=== PATIENT | female | born 1990 | race Two or more races ===

== ENCOUNTER 2019-05-30 14:45 | Emergency (ER) | payer BC ==
[2019-05-30 15:06] VITALS: BP 132/82
--- NOTE | 2019-05-30 15:34 | ER Document Report ---
ED Medical Screen (RME) - General Chief Complaint: Flank Pain Stated Complaint: FLANK PAIN Time Seen by Provider: 05/30/19 15:29 Mode of Arrival: Ambulatory Information source: Patient Notes: Patient presents emergency department with complaints of right-sided flank pain since yesterday. Denies pain with void. Denies fever vomiting diarrhea. Reports history of kidney stones. Denies trauma. Increases more when she takes a deep breath. I have greeted and performed a rapid initial assessment of this patient. A comprehensive ED assessment and evaluation of the patient, analysis of test results and completion of the medical decision making process will be conducted by additional ED providers. Dictation of this chart was performed using voice recognition software; therefore, there may be some unintended grammatical errors. TRAVEL OUTSIDE OF THE [place] IN LAST 30 DAYS: No - Related Data Allergies/Adverse Reactions: latex Allergy (Intermediate, Verified 05/30/19 15:29) Hives Past Medical History Renal/ Medical History: Denies: Hx Peritoneal Dialysis Physical Exam - Vital signs Vitals: Temp Pulse Resp BP Pulse Ox 98.6 F 71 18 132/82 H 98 05/30/19 15:05 05/30/19 15:05 05/30/19 15:05 05/30/19 15:05 05/30/19 15:05 Course - Vital Signs Vital signs: Temp Pulse Resp BP Pulse Ox 98.6 F 71 18 132/82 H 98 05/30/19 15:05 05/30/19 15:05 05/30/19 15:05 05/30/19 15:05 05/30/19 15:05 - Laboratory Laboratory results interpreted by me: 05/30/19 15:45 Urine Blood SMALL H Ur Leukocyte Esterase MODERATE H
[2019-05-30 16:04] LABS: APPEARANCE,URINE SLIGHTLY-CLOUDY; BILIRUBIN,URINE NEGATIVE (NEGATIVE); COLOR,URINE YELLOW; GLUCOSE, URINE NEGATIVE (NEGATIVE); KETONES,URINE NEGATIVE (NEGATIVE); LEUKOCYTE ESTERASE,URINE MODERATE (NEGATIVE); NITRITE,URINE NEGATIVE (NEGATIVE); PROTEIN,URINE NEGATIVE (NEGATIVE); URINE SPECIFIC GRAVITY 1.026; UROBILINOGEN,URINE NEGATIVE mg/dL (<2.0)
[2019-05-30] MEDS ORDERED: KETOROLAC TROMETHAMINE 60 MG/2 ML SDV IM ONE (16:15)
[2019-05-30] MEDS ORDERED: LIDOCAINE 5% (700 MG) TRANSDERMAL ADH..PATCH TP ONE (16:15)
[2019-05-30] MEDS ORDERED: DIAZEPAM 5 MG TABLET PO ONE (16:15)
--- NOTE | 2019-05-30 16:21 | ER Document Report ---
Addendum entered and electronically signed by MANDY GARCIA PA-C 05/30/19 16:45: Discharge - Discharge Clinical Impression: Elevated blood pressure reading Low back pain Qualifiers: Chronicity: acute Back pain laterality: right Sciatica presence: without sciatica Qualified Code(s): M54.5 - Low back pain UTI (urinary tract infection) Qualifiers: Urinary tract infection type: site unspecified Hematuria presence: without hematuria Qualified Code(s): N39.0 - Urinary tract infection, site not specified Condition: Good Disposition: HOME, SELF-CARE Instructions: Ciprofloxacin ([facility]), Low Back Pain ([facility]), Stretching Exercises for the Back ([facility]), Urinary Tract Infection ([facility]) Prescriptions: Ciprofloxacin HCl [Cipro 500 mg Tablet] 500 mg PO BID #10 tablet Naproxen 500 mg PO BID 7 Days #14 tablet Tizanidine HCl [Zanaflex 4 Mg Tablet] 4 mg PO TID #12 tablet Forms: Elevated Blood Pressure Referrals: [facility] [Provider Group] - Follow up as needed Original Note: ED General - General Chief Complaint: Flank Pain Stated Complaint: FLANK PAIN Time Seen by Provider: 05/30/19 15:29 Mode of Arrival: Ambulatory TRAVEL OUTSIDE OF THE [place] IN LAST 30 DAYS: No - HPI Patient complains to provider of: RIGHT SIDED LOW BACK PAIN Onset: This afternoon Onset/Duration: Sudden Quality of pain: Sharp Severity: Severe Pain Level: 4 Associated symptoms: None Exacerbated by: Movement, Walking, Deep breathing Relieved by: Denies Similar symptoms previously: No Recently seen / treated by doctor: No Notes: 28-year-old female comes in today with right low back pain. Started hurting around last night early this morning. No obvious trauma. The pain is in the right lower back it does not radiate. There is no nausea or vomiting. No dysuria. No loss of bladder bowel. No loss of saddle sensation. No focal weakness. Did not take anything for this prior to coming in. - Related Data Allergies/Adverse Reactions: latex Allergy (Intermediate, Verified 05/30/19 15:29) Hives Past Medical History - General Information source: Patient - Social History Smoking Status: Current Every Day Smoker Drug Abuse: None Lives with: Alone, Family Family History: Reviewed & Not Pertinent Patient has suicidal ideation: No Patient has homicidal ideation: No Renal/ Medical History: Denies: Hx Peritoneal Dialysis Review of Systems - Review of Systems Notes: Constitutional: No fevers. No chills. EENT: No eye redness. No eye pain. No ear pain. No sore throat. Cardiovascular: No chest pain. No palpitations. Respiratory: No cough. No shortness of breath. No respiratory distress. Gastrointestinal: No abdominal pain. No nausea, vomiting, or diarrhea. Genitourinary: Atraumatic. No lesions. No pain. No discharge. Musculoskeletal: Positive low back pain Skin: No rash or lesions. Lymphatic: No swollen lymph nodes. Neurologic: No headache. No syncope. Psychiatric: No suicidal or homicidal ideation. Physical Exam - Vital signs Vitals: Temp Pulse Resp BP Pulse Ox 98.6 F 71 18 132/82 H 98 05/30/19 15:05 05/30/19 15:05 05/30/19 15:05 05/30/19 15:05 05/30/19 15:05 - Notes Notes: General: Well-developed, well-nourished. In no acute distress. Non-toxic appearing. Morbidly obese Cardiac: Well-perfused. Regular rate and rhythm. No murmurs, rubs, or gallops. Pulmonary: No respiratory distress. No cyanosis. Bilateral lung fiels are clear to auscultation. Abdominal: Non-distended. Non-rigid. Bowels sounds are present in all four quadrants. No guarding or rebound. HEENT: Head is atraumatic. Conjunctivae not reddened. No tearing. PERRL. EOMI. Orbits atraumatic. No periorbital swelling or erythema. Oropharynx is without erythema, swelling, or exudates. Neck: Supple. No adenopathy. No meningismus. Dermatologic: Warm with good turgor. No rash. Atraumatic. Chest: Atraumatic. No chest wall tenderness to palpation. Musculoskeletal: Moves all extremities well. No range of motion deficits. no mu scular or joint tenderness. no midline spinal tenderness or step-off. Right- sided paralumbar tenderness Genitourinary: Examination deferred Neurologic: No gross neurologic deficits. Psychiatric: Normal mood. Course - Re-evaluation Re-evalutation: 05/30/19 16:24 Urinalysis slightly positive. Will treat - Vital Signs Vital signs: Temp Pulse Resp BP Pulse Ox 98.6 F 71 18 132/82 H 98 05/30/19 15:05 05/30/19 15:05 05/30/19 15:05 05/30/19 15:05 05/30/19 15:05 - Laboratory Laboratory results interpreted by me: 05/30/19 15:45 Urine Blood SMALL H Ur Leukocyte Esterase MODERATE H Discharge - Discharge Clinical Impression: Elevated blood pressure reading Low back pain Qualifiers: Chronicity: acute Back pain laterality: right Sciatica presence: without sciatica Qualified Code(s): M54.5 - Low back pain UTI (urinary tract infection) Qualifiers: Urinary tract infection type: site unspecified Hematuria presence: without hematuria Qualified Code(s): N39.0 - Urinary tract infection, site not specified Condition: Good Disposition: HOME, SELF-CARE Instructions: Ciprofloxacin ([facility]), Urinary Tract Infection ([facility]), Low Back Pain ([facility]), Stretching Exercises for the Back ([facility]) Prescriptions: Ciprofloxacin HCl [Cipro 500 mg Tablet] 500 mg PO BID #10 tablet Naproxen 500 mg PO BID 7 Days #14 tablet Tizanidine HCl [Zanaflex 4 Mg Tablet] 4 mg PO TID #12 tablet Forms: Elevated Blood Pressure Referrals: [facility] [Provider Group] - Follow up as needed
== END 2019-05-30 16:53 | disposition home or self-care (01) ==
LOC: ER 14:45
DX: N39.0 Urinary tract infection, site not specified (principal); R10.9 Unspecified abdominal pain; M54.5 Low back pain; R03.0 Elevated blood-pressure reading, without diagnosis of hypertension; F17.200 Nicotine dependence, unspecified, uncomplicated
CPT/HCPCS: 99284; 96372; 81025; 81001; J1885

== ENCOUNTER → 2019-11-07 | Outpatient (CLI) | payer BC ==
--- NOTE | 2019-11-07 15:20 | RADIOLOGY REPORT (SQ) ---
EXAM DESCRIPTION: CHEST 2 VIEWS COMPLETED DATE/TIME: 11/07/2019 11:41 am REASON FOR STUDY: COUGH COMPARISON: None. EXAM PARAMETERS: NUMBER OF VIEWS: two views TECHNIQUE: Digital Frontal and Lateral radiographic views of the chest acquired. RADIATION DOSE: NA LIMITATIONS: none FINDINGS: LUNGS AND PLEURA: Segmental airspace disease in the left lower lobe. Opacity suspicious f or early pneumonia in the right middle lobe. No effusions. MEDIASTINUM AND HILAR STRUCTURES: No masses or contour abnormalities. HEART AND VASCULAR STRUCTURES: Heart normal size. No evidence for failure. BONES: No acute findings. HARDWARE: None in the chest. OTHER: No other significant finding. IMPRESSION: Bilateral pneumonia. TECHNICAL DOCUMENTATION: JOB ID: [id number] [email or web address] All Rights Reserved Reading location - IP/workstation name: [email or web address]
== END ==
LOC: RAD 11:28
PROVIDERS: ATTEND Nurse Practitioner Family
DX: J18.9 Pneumonia, unspecified organism (principal)
CPT/HCPCS: 71046

== ENCOUNTER 2020-12-10 09:03 | Emergency (ER) | payer BC ==
[2020-12-10] MEDS ORDERED: DIPHENHYDRAMINE HCL 50 MG CAPSULE PO ONE (10:39)
--- NOTE | 2020-12-10 10:41 | ER Document Report ---
ED Skin Rash/Insect Bite/Abscs - General Chief Complaint: Skin Problem Stated Complaint: RASH,TINGLING FEELING IN FINGERS Time Seen by Provider: 12/10/20 10:14 Primary Care Provider: FATMATA ZABALA MD [Primary Care Provider] - Follow up as needed Notes: HPI: 29-year-old female who presents today stating that she has had a rash for around 5 days. Is very itchy. It is "all over". No systemic symptoms such as fever, vomiting, diarrhea, cough, shortness of breath. She did have a telehealth visit 2 days ago and was started on prednisone and hydroxyzine. Patient denies any new medications, perfumes, fabric softeners, new foods, or other obvious allergy contacts. Partner does not have a similar rash. ROS: See HPI All other review of systems reviewed and otherwise negative Reviewed vital signs and nursing note as charted by RN. PHYSICAL EXAM: CONSTITUTIONAL: Alert and oriented and responds appropriately to questions. Well-appearing; well-nourished HEAD: Normocephalic; atraumatic EYES: PERRL; Conjunctivae clear, sclerae non-icteric ENT: No lip, tongue, posterior pharyngeal lesions present NECK: Supple without meningismus; non-tender; no cervical lymphadenopathy, no masses CARD: Regular rate and rhythm; no murmurs; symmetric distal pulses RESP: Normal chest excursion without splinting or tachypnea; breath sounds clear and equal bilaterally; no wheezes, no rhonchi, no rales ABD/GI: Normal bowel sounds; non-distended; soft, non-tender EXT: Normal ROM in all joints; non-tender to palpation; no edema SKIN: Patient has a blanching fine maculopapular rash that is nontender distributed mostly to the extremities, and trunk. No palm or sole lesions present NEURO: CN 2-12 intact; 5/5 bilateral upper and lower extremity strength with sensation intact to light touch PSYCH: The patient's mood and manner are appropriate. Grooming and personal hygiene are appropriate. TRAVEL OUTSIDE OF THE [place] IN LAST 30 DAYS: No - Related Data Allergies/Adverse Reactions: latex Allergy (Intermediate, Verified 12/10/20 09:27) Hives Past Medical History - Social History Smoking Status: Current Every Day Smoker Family History: Reviewed & Not Pertinent - Past Medical History Cardiac Medical History: Reports: Hx Hypertension Endocrine Medical History: Reports: Hx Diabetes Mellitus Type 2 Renal/ Medical History: Denies: Hx Peritoneal Dialysis Past Surgical History: Reports: Hx Tonsillectomy Physical Exam - Vital signs Vitals: Temp Pulse Resp BP Pulse Ox 98.6 F 84 18 149/89 H 99 12/10/20 09:09 12/10/20 09:09 12/10/20 09:09 12/10/20 09:09 12/10/20 09:09 Course - Re-evaluation Re-evalutation: 12/10/20 10:40 Given the above history and physical with no systemic signs, with a history of diabetes, I will obtain basic labs including a glucose and electrolyte cristina luation. Patient's rash is very nontoxic appearing and I do believe it is most likely an allergic type reaction from an unknown stimulant. No new change in medications. No signs of angioedema. No change in exam on reassessment. Patient already started prednisone a low dose 2 days ago given her diabetes. No concerning signs or symptoms. Stable vital signs. Given the above history and physical, with no obvious allergy source, no signs or symptoms of toxicity, no intertriginous zones or linear pustules present, we will have the patient continue the prednisone, and Benadryl as needed, and follow-up with the primary care physician for reassessment. Strict return precautions have been explained. 12/10/20 11:52 Labs as recorded. - Vital Signs Vital signs: Temp Pulse Resp BP Pulse Ox 98.6 F 84 18 149/89 H 99 12/10/20 09:09 12/10/20 09:09 12/10/20 09:09 12/10/20 09:09 12/10/20 09:09 - Laboratory Results Result Diagrams: 12/10/20 10:55 12/10/20 10:55 Laboratory Results Interpreted: 12/10/20 10:55 WBC 13.1 H MCV 76 L MCH 25.0 L RDW 15.5 H Lymph % (Auto) 10.[address] [facility] % (Auto) 2.3 L Absolute Neuts (auto) 11.1 H Seg Neutrophils % 85.0 H Critical Laboratory Results Reviewed: No Critical Results - Radiology Results Critical Radiology Results Reviewed: No Critical Results Discharge - Discharge Clinical Impression: Skin rash Condition: Good Disposition: HOME, SELF-CARE Additional Instructions: Come back immediately for any worsening rash, fever, vomiting, facial swelling, difficulty breathing or swallowing, abdominal pain or nausea, or any other acute problems. Please continue steroids as prescribed and take Benadryl 25 to 50 mg every 6 hours for itching. Please make sure that you follow-up with the primary care physician for reassessment as discussed. Referrals: FATMATA ZABALA MD [Primary Care Provider] - Follow up as needed
[2020-12-10 11:25] LABS: ABSOLUTE EOSINOPHILS # (AUTO) 0.3 10^3/uL (0.0-0.6); ABSOLUTE LYMPHOCYTES (AUTO) 1.4 10^3/uL (0.5-4.7); ABSOLUTE MONOCYTES (AUTO) 0.3 10^3/uL (0.1-1.4); ABSOLUTE NEUT (AUTO) 11.1 10^3/uL (1.7-8.2); BASOPHILS % (AUTO) 0.1 % (0-2); EOSINOPHILS % (AUTO) 1.9 % (0-6); HEMATOCRIT 39.6 % (36.0-47.0); HEMOGLOBIN 13.1 g/dL (12.0-15.5); LYMPHOCYTES % (AUTO) 10.7 % (13-45); MEAN CORPUSCULAR HGB CONC 33.1 g/dL (32.0-36.0); MEAN CORPUSCULAR VOLUME 76 fl (80-97); MONOCYTES % (AUTO) 2.3 % (3-13); PLATELET COUNT 232 10^3/uL (150-450); RED BLOOD COUNT 5.24 10^6/uL (3.72-5.28); RED CELL DISTRIBUTION WIDTH 15.5 % (11.5-14.0); TOTAL CELLS COUNTED % (AUTO) 100 %; WHITE BLOOD COUNT 13.1 10^3/uL (4.0-10.5)
[2020-12-10 11:49] LABS: ANION GAP 5 (5-19); BLOOD UREA NITROGEN 17 mg/dL (7-20); CALCIUM 9.5 mg/dL (8.4-10.2); CARBON DIOXIDE 27 mmol/L (22-30); CHLORIDE 107 mmol/L (98-107); GLUCOSE 108 mg/dL (75-110); POTASSIUM 4.6 mmol/L (3.6-5.0)
[2020-12-10 12:06] VITALS: BP 133/78
== END 2020-12-10 11:55 | disposition home or self-care (01) ==
LOC: ER 09:03
DX: R21 Rash and other nonspecific skin eruption (principal); R20.2 Paresthesia of skin; F17.200 Nicotine dependence, unspecified, uncomplicated; I10 Essential (primary) hypertension; E11.9 Type 2 diabetes mellitus without complications; Z91.040 Latex allergy status
CPT/HCPCS: 36415; 80048; 85025; 99283